=== PATIENT | male | born 1980 | race Caucasian/White ===

== ENCOUNTER 2018-10-28 20:24 | Emergency (ER) | payer BC ==
[2018-10-28 20:35] VITALS: RESP 19
[2018-10-28] MEDS ORDERED: SULFAMETH-TMP DS STARTER PACK 2 TAB BTL PO STA (22:15)
[2018-10-28] MEDS ORDERED: SULFAMETHOX-TMP 800-160MG 1 EACH TAB PO STA (22:15)
--- NOTE | 2018-10-28 22:24 | ED ---
General Adult HPI - General Chief complaint: Skin/Abscess/Foreign Body Stated complaint: Abscess on neck Time Seen by Provider: 10/28/18 20:42 Source: patient, RN notes reviewed, old records reviewed Mode of arrival: ambulatory - History of Present Illness Initial comments: 38-year-old male patient presents to ED with red bump on right side of neck. Patient states first noticed this today, squeezed it and was unable to express any drainage. Patient reports that is mildly painful. Patient denies any other complaints this time. Patient has any systemic signs of infections, denies any nausea vomiting diarrhea, fevers or chills. Patient denies other complaints. Systemic: Pt denies fatigue, fever/chills, rash. Pt denies weakness, night sweats, weight loss. Neuro: Pt denies headache, visual disturbances, syncope or pre-syncope. HEENT: Pt denies ocular discharge or irritation, otalgia, rhinorrhea, pharyngitis or notable lymphadenopathy. Cardiopulmonary: Pt denies chest pain, SOB, heart palpitations, dyspnea on exertion. Abdominal/GI: Pt denies abdominal pain, n/v/d. : Pt denies dysuria, burning w/ urination, frequency/urgency. Denies new onset urinary or bowel incontinence. MSK: Pt denies myalgia, loss of strength or function in extremities. Neuro: Pt denies new onset weakness, paresthesias. - Related Data Previous Rx's Medication Instructions Recorded Sulfamethox-Tmp 800-160Mg [Bactrim 1 tab PO Q12HR #20 tab 10/28/18 DS 800-160 mg] Allergies Allergy/AdvReac Type Severity Reaction Status Date / Time No Known Allergies Allergy Verified 10/28/18 20:49 Review of Systems ROS Statement: Those systems with pertinent positive or pertinent negative responses have been documented in the HPI. ROS Other: All systems not noted in ROS Statement are negative. Past Medical History Past Medical History: No Reported History Past Surgical History: No Surgical Hx Reported Past Psychological History: No Psychological Hx Reported Smoking Status: Current every day smoker Past Alcohol Use History: Daily Past Drug Use History: None Reported General Exam - General Exam Comments Initial Comments: Constitutional: NAD, AOX3, Pt has pleasant affect. HEENT: NC/AT, trachea midline, neck supple, no lymphadenopathy. Posterior pharynx non erythematous, without exudates. External ears appear normal, without discharge. Mucous membranes moist. Eyes PERRLA, EOM intact. There is no scleral icterus. No pallor noted. Cardiopulmonary: RRR, no murmurs, rubs or gallops, no JVD noted. Lungs CTAB in anterior and posterior winter. No peripheral edema. Abdominal exam: Abdomen soft and non-distended. Abdomen non-tender to palpation in all 4 quadrants. Bowel sounds active in LLQ. No hepatosplenomegaly. No ecchymosis Neuro: CN II-XII grossly intact. No nuchal rigidity. No raccon eyes, no hopkins sign, no hemotympanum. No cervical spinal tenderness. MSK: No posterior calf tenderness bilaterally, homans sign negative bilaterally. Posterior tibialis and radial pulse +2 bilaterally. Sensation intact in upper and lower extremities. Full active ROM in upper and lower extremities, 5/5 stregnth. Derm: 1 cm erythematous close comedones noted on right side of neck. Warm compress placed on area, spontaneous drainage occurred. Course Vital Signs 10/28/18 20:31 Temperature 98.1 F Pulse Rate 117 H Respiratory 19 Rate Blood Pressure 154/99 O2 Sat by Pulse 96 Oximetry Medical Decision Making - Medical Decision Making 38-year-old male patient presents to ED with red bump on right side of neck. Patient states first noticed this today, squeezed it and was unable to express any drainage. Patient reports that is mildly painful. Patient denies any other complaints this time. Patient has any systemic signs of infections, denies any nausea vomiting diarrhea, fevers or chills. Patient denies other complaints. PT VS within acceptable limits at discharge. Physical exam displayed: 1 cm erythematous close comedones noted on right side of neck. Warm compress placed on area, spontaneous drainage occurred. Patient will be discharged with Bactrim, follow up with primary care provider, will have strict return precautions. Case discussed with Dr. Reynolds. Disposition Clinical Impression: Open comedone Disposition: HOME SELF-CARE Condition: Stable Instructions (If sedation given, give patient instructions): Warm Compress or Soak (ED) Additional Instructions: Patient to adhere to previously discussed treatment plan and will take medication(s) as directed. Patient to follow up with PCP in 1-2 days. Patient to return to ED if symptoms do not improve. Take medication as prescribed. Use warm compress on region. Return immediately to ER if condition worsens in any way. Follow-up with primary care provider tomorrow. Prescriptions: Sulfamethox-Tmp 800-160Mg [Bactrim DS 800-160 mg] 1 tab PO Q12HR #20 tab Is patient prescribed a controlled substance at d/c from ED?: No Referrals: None,Stated [Primary Care Provider] - 1-2 days
[2018-10-28 22:37] VITALS: BP 143/98; PULSE 95; TEMP 98
== END 2018-10-28 22:36 | disposition home or self-care (01) ==
LOC: EC 20:24
DX: L70.0 Acne vulgaris (principal); F17.200 Nicotine dependence, unspecified, uncomplicated
CPT/HCPCS: 87070; 87205; 99283

== ENCOUNTER 2018-10-30 10:52 | Emergency (ER) | payer BC ==
[2018-10-30 11:07] VITALS: BP 145/96; PULSE 101; RESP 16; TEMP 98
[2018-10-30] MEDS ORDERED: cefTRIAXone 1,000 MG VIAL (IM USE) IM STA (12:10)
--- NOTE | 2018-10-30 12:10 | ED ---
Skin/Abscess/FB HPI - General Chief complaint: Skin/Abscess/Foreign Body Stated complaint: abscess Time Seen by Provider: 10/30/18 11:07 Source: patient Mode of arrival: ambulatory Limitations: no limitations - History of Present Illness Initial comments: 38 yo male presenting for possible abscess of the right side of the neck. Patient states this started out as a pimple. Patient states as been enlarging. Patient states he has been on Bactrim for the past day. Patient states is more painful. Patient states there is mild surrounding redness. Patient states that applying warm compresses. In taking medications. Patient denies fever or chills night sweats or flulike symptoms. Patient was concerned as a bigger presents emergency department for evaluation remaining review of systems negative upon arrival patient appears well no signs of acute distress. - Related Data Previous Rx's Medication Instructions Recorded Sulfamethox-Tmp 800-160Mg [Bactrim 1 tab PO Q12HR #20 tab 10/28/18 DS 800-160 mg] Cephalexin [Keflex] 500 mg PO Q6HR 7 Days #28 cap 10/30/18 Allergies Allergy/AdvReac Type Severity Reaction Status Date / Time No Known Allergies Allergy Verified 10/30/18 11:14 Review of Systems ROS Statement: Those systems with pertinent positive or pertinent negative responses have been documented in the HPI. ROS Other: All systems not noted in ROS Statement are negative. Past Medical History Past Medical History: No Reported History Past Surgical History: No Surgical Hx Reported Past Psychological History: No Psychological Hx Reported Smoking Status: Current every day smoker Past Alcohol Use History: Daily Past Drug Use History: None Reported General Exam - General Exam Comments Initial Comments: General: The patient is awake and alert, in no distress, and does not appear acutely ill. Eye: Pupils are equal, round and reactive to light, extra-ocular movements are intact. No nystagmus. There is normal conjunctiva bilaterally. No signs of icterus. Ears, nose, mouth and throat: There are moist mucous membranes and no oral lesions. Neck: The neck is supple, there is no tenderness or JVD. Cardiovascular: There is a regular rate and rhythm. No murmur, rub or gallop is appreciated. Respiratory: Lungs are clear to auscultation, respirations are non-labored, breath sounds are equal. No wheezes, stridor, rales, or rhonchi. Musculoskeletal: Normal ROM, no tenderness. Strength 5/5. Sensation intact. Pulses equal bilaterally 2+. Neurological: A&O x 3. CN II-XII intact, There are no obvious motor or sensory deficits. Coordination appears grossly intact. Speech is normal. Skin: Skin is warm and dry and no rashes or lesions are noted. Small what appears to be large comedome vs developing abscess on right side of neck very mild surrounding cellulitis/induration. No active drainage. Psychiatric: Cooperative, appropriate mood & affect, normal judgment. Limitations: no limitations Course Vital Signs 10/30/18 10/30/18 11:05 12:25 Temperature 98 F 98 F Pulse Rate 101 H 101 H Respiratory 16 16 Rate Blood Pressure 145/96 145/96 O2 Sat by Pulse 97 97 Oximetry Medical Decision Making - Medical Decision Making 38yo male presenting for possible neck abscess. Needle aspiration was attempted however there is no purulent drainage obtained. More induration and fluctuance. Appears to be a comedone opposed to an abscess. Patient was instructed to continue warm compresses. Patient was given Keflex in addition to Bactrim for the mild surrounding cellulitis. Return primary discussed at length including fever, worsening pain increasing redness patient verbalizes understanding. Patient was discharged appearing well Disposition Clinical Impression: Pustule, Abscess Disposition: HOME SELF-CARE Condition: Good Instructions (If sedation given, give patient instructions): Abscess Incision and Drainage (ED) Additional Instructions: Please use medication as discussed. Please follow-up with family doctor in the next 2 days, apply compresses and take antibiotics as discussed. Please return to emergency room if the symptoms increase or worsen or for any other concerns. Prescriptions: Cephalexin [Keflex] 500 mg PO Q6HR 7 Days #28 cap Is patient prescribed a controlled substance at d/c from ED?: No Referrals: None,Stated [Primary Care Provider] - 1-[address] [facility] - 1-2 days Time of Disposition: 12:10
== END 2018-10-30 12:25 | disposition home or self-care (01) ==
LOC: EC 10:52
DX: L02.11 Cutaneous abscess of neck (principal); L03.221 Cellulitis of neck; F17.200 Nicotine dependence, unspecified, uncomplicated
CPT/HCPCS: 99283; 96372; J0696

== ENCOUNTER 2019-08-08 15:17 | Emergency (ER) | payer BC, OTHER ==
[2019-08-08] MEDS ORDERED: cefTRIAXone 1,000 MG VIAL (IM USE) IM STA (16:17)
[2019-08-08] MEDS ORDERED: LIDOCAINE 1% INJ 10MG/ML (20 ML MDV) SQ ONE (16:17)
--- NOTE | 2019-08-08 17:36 | ED ---
Skin/Abscess/FB HPI - General Chief complaint: Skin/Abscess/Foreign Body Stated complaint: right muse injury Time Seen by Provider: 08/08/19 15:44 Source: patient Mode of arrival: wheelchair Limitations: no limitations - History of Present Illness Initial comments: Patient is a 39-year-old male presenting to emergency Department with complaints of a possible infection in his right lower leg. Patient states he noticed a small pimple-like sore about 1 week ago. Patient has been squeezing the area and then noticed today that his lower leg was more painful than usual and noticed increase in redness and swelling. Patient states he did squeeze it again yesterday and it did drain some. Patient denies any fever, chills, nausea, vomiting. He has no other complaints at this time. Patient has no other comorbidities. Upon arrival to the ER, his vitals are stable. - Related Data Previous Rx's Medication Instructions Recorded Sulfamethox-Tmp 800-160Mg [Bactrim 1 tab PO Q12HR #20 tab 10/28/18 DS 800-160 mg] Cephalexin [Keflex] 500 mg PO Q6HR 7 Days #28 cap 10/30/18 Cephalexin [Keflex] 500 mg PO Q6HR 10 Days #40 cap 08/08/19 Sulfamethox-Tmp 800-160Mg [Bactrim 1 each PO Q12HR 10 Days #20 tab 08/08/19 Ds] Allergies Allergy/AdvReac Type Severity Reaction Status Date / Time No Known Allergies Allergy Verified 08/08/19 15:29 Review of Systems ROS Statement: Those systems with pertinent positive or pertinent negative responses have been documented in the HPI. ROS Other: All systems not noted in ROS Statement are negative. Past Medical History Past Medical History: No Reported History History of Any Multi-Drug Resistant Organisms: None Reported Past Surgical History: No Surgical Hx Reported Past Psychological History: No Psychological Hx Reported Smoking Status: Current every day smoker Past Alcohol Use History: Daily Past Drug Use History: None Reported General Exam - General Exam Comments Initial Comments: GENERAL: Well-appearing, well-nourished and in no acute distress. HEAD: Atraumatic, normocephalic. EYES: Pupils equal round and reactive to light, extraocular movements intact, sclera anicteric, conjunctiva are normal. ENT: TMs normal, nares patent, oropharynx clear without exudates. Moist mucous membranes. NECK: Normal range of motion, supple without lymphadenopathy or JVD. LUNGS: Breath sounds clear to auscultation bilaterally and equal. No wheezes rales or rhonchi. HEART: Regular rate and rhythm without murmurs, rubs or gallops. ABDOMEN: Soft, nontender, normoactive bowel sounds. No guarding, no rebound. No masses appreciated. : Deferred EXTREMITIES: Patient has full pain-free range of motion of his right lower extremity. Sensation is equal bilateral. He is neurovascularly intact. No clubbing or cyanosis. NEUROLOGICAL: Normal speech, normal gait. PSYCH: Normal mood, normal affect. SKIN: Warm, Dry, normal turgor. Patient has cellulitis of the right lower leg with a scabbed over sore in the anterior portion of his leg. There is some warmth to the area as well as some spreading erythema consistent with cellulitis. Neurovascular intact. Limitations: no limitations Course Vital Signs 08/08/19 08/08/19 15:26 17:54 Temperature 99.6 F 99.9 F H Pulse Rate 109 H 78 Respiratory 18 17 Rate Blood Pressure 169/100 158/97 O2 Sat by Pulse 98 98 Oximetry Procedures - Incision & Drainage Consent Obtained: verbal consent Indication: Abscess Site: lower extremity (Right lower extremity, anterior aspect) Size (cm): 1 Anesthetic Used: lidocaine 1% Amount (mLs): 3 I&D Cleaning Method: Alcohol Wipe Sterile Field Used?: Yes Scalpel Used: #11 Needle Aspiration Performed?: No Irrigation Performed?: No I&D Drainage Obtained: Blood Culture Obtained?: No Patient Tolerated Procedure: well Medical Decision Making - Medical Decision Making Patient is a 39-year-old male presenting with cellulitis of his right lower leg times one week. Denies any recent fevers, however patient did present today with a low-grade fever. Patient was given 1 g of Rocephin in the ER. I attempted an I&D of the area with only blood drainage, consent was taken. Patient will be given Bactrim and Keflex to continue outpatient. Strict return parameters were discussed with the patient such as increasing fever, nausea, vomiting, severe pain. Patient is agreeable with this plan of care. He is stable for discharge. Disposition Clinical Impression: Cellulitis of right lower leg Disposition: HOME SELF-CARE Condition: Stable Instructions (If sedation given, give patient instructions): Cellulitis (ED) Additional Instructions: Please return to the Emergency Department if symptoms worsen or any other concerns. Take both antibiotics as prescribed. Keep wound clean and dry. Prescriptions: Sulfamethox-Tmp 800-160Mg [Bactrim Ds] 1 each PO Q12HR 10 Days #20 tab Cephalexin [Keflex] 500 mg PO Q6HR 10 Days #40 cap Is patient prescribed a controlled substance at d/c from ED?: No Referrals: None,Stated [Primary Care Provider] - 1-2 days
[2019-08-08 17:56] VITALS: BP 158/97; PULSE 78; RESP 17; TEMP 99.9
== END 2019-08-08 17:56 | disposition home or self-care (01) ==
LOC: EC 15:17
DX: L03.115 Cellulitis of right lower limb (principal); F17.200 Nicotine dependence, unspecified, uncomplicated
CPT/HCPCS: 99283; 10060; 96372; J2001; J0696